=== PATIENT | male | born 1990 | race Caucasian/White ===

== ENCOUNTER 2018-12-26 21:01 | Emergency (ER) | payer SELFPAY ==
--- NOTE | 2018-12-26 21:12 | PDOC ---
History of Present Illness - General Chief Complaint: Pain Stated Complaint: SORE THROAT, EAR CLOGGED X ONE WEEK Time Seen by Provider: 12/26/18 21:04 - History of Present Illness Initial Comments: The pt is a 28M w/ no reported PMH who presents for evaluation of fevers, sore throat, and R ear discomfort/sensation of it being clogged for approximately 1 week. He has tried taking Tylenol w/ mild to moderate relief. He presents today for persistent symptoms. Denies N/V, chest pain, cough, SOB, abdominal pain, diarrhea, blood in his stool, dysuria, hematuria, or changes in sensation. 12/26/18 21:07 Past History - Past Medical History Allergies/Adverse Reactions: Allergies Allergy/AdvReac Type Severity Reaction Status Date / Time No Known Allergies Allergy Verified 12/26/18 21:02 Home Medications: Ambulatory Orders Amoxicillin - [Amoxicillin 500mg Capsule -] 500 mg PO TID #21 capsule 12/26/18 Dextroamphetamine/Amphetamine [Adderall 10 mg Tablet] 10 mg PO DAILY 12/26/18 - Immunization History Immunization Up to Date: Yes - Suicide/Smoking/Psychosocial Hx Smoking History: Unknown if ever smoked Have you smoked in the past 12 months: No Number of Cigarettes Smoked Daily: 0 Hx Alcohol Use: No Substance Use Type: None Review of Systems - Review of Systems Able to Perform ROS?: Yes Comments:: GENERAL/CONSTITUTIONAL: No chills. No weakness HEAD, EYES, EARS, NOSE AND THROAT: No change in vision. No discharge. CARDIOVASCULAR: No chest pain or shortness of breath RESPIRATORY: Denies cough, hemoptysis GASTROINTESTINAL: No nausea, vomiting, diarrhea or constipation GENITOURINARY: No dysuria, frequency, or change in urination MUSCULOSKELETAL: No joint or muscle swelling or pain. No neck or back pain SKIN: No rash NEUROLOGIC: No headache, vertigo, loss of consciousness, or change in strength/ sensation ENDOCRINE: No increased thirst. No abnormal weight change HEMATOLOGIC/LYMPHATIC: No anemia, easy bleeding, or history of blood clots ALLERGIC/IMMUNOLOGIC: No hives or skin allergy 12/26/18 21:10 Is the patient limited Amharic proficient: No *Physical Exam - Vital Signs Vital Signs Temp Pulse Resp BP Pulse Ox 97.9 F 72 16 132/84 99 12/26/18 21:04 12/26/18 21:04 12/26/18 21:04 12/26/18 21:04 12/26/18 21:04 12/26/18 21:11 - Physical Exam Comments: GENERAL: Awake, alert, and oriented to person/place/time, in no acute distress HEAD: No signs of trauma, normocephalic, atraumatic EYES: PERRLA, EOMI, sclera anicteric, conjunctiva clear ENT: R OM; L ear canal w/ copious cerumen w/ TM visualized being normal; Hearing grossly normal, nares patent, oropharynx clear without exudates. Moist mucosa LUNGS: No distress, speaks in full sentences, clear to auscultation bilaterally HEART: Regular rate and rhythm, normal S1 and S2, no murmurs appreciated, peripheral pulses normal and equal bilaterally ABDOMEN: Soft, nontender, normoactive bowel sounds. No guarding, no rebound EXTREMITIES: Normal inspection, Normal range of motion, no edema. No clubbing or cyanosis NEUROLOGICAL: Cranial nerves II through XII grossly intact. Normal speech, normal gait, no focal sensorimotor deficits SKIN: Warm, Dry 12/26/18 21:11 Medical Decision Making - Medical Decision Making The pt is a 28M w/ no reported PMH who presents for evaluation of fevers, sore throat, and R ear discomfort/sensation of it being clogged for approximately 1 week. Pt w/ R OM Amoxicillin 500mg PO once Rx for Amoxicillin for 5 days 12/26/18 21:25 Plan for D/C w/ PCP and ENT f/u Discharge instructions and return precautions given Pt in agreement and verbalized understanding Dispo: home 12/26/18 21:34 *DC/Admit/Observation/Transfer Diagnosis at time of Disposition: Right otitis media Qualifiers: Otitis media type: unspecified Qualified Code(s): H66.91 - Otitis media, unspecified, right ear - Discharge Dispostion Disposition: HOME Condition at time of disposition: Stable Decision to Admit order: No - Referrals Referrals: Jon Hernández MD [Staff Physician] - [facility] – [place] [facility] [place] [Provider Group] - Patient Instructions Printed Discharge Instructions: Middle Ear Infection Additional Instructions: You were seen in the Emergency Department for evaluation and found to have a right ear infection. You were treated with Amoxicillin and a prescription was sent to the pharmacy that you specified, take as directed. You may continue to take Tylenol for your symptoms. Review the handout provided at discharge. Follow up with your primary care provider and the referral provided for ENT. Return to the Emergency Department if you develop fevers/chills despite medication use, worsening symptoms, trouble breathing, chest pain, difficulty/ painful swallowing, or any new/concerning symptoms. - Post Discharge Activity
[2018-12-26 21:15] VITALS: BP 132/84; PULSE 72; TEMP 97.9; BMI 26.4
[2018-12-26] MEDS ORDERED: AMOXICILLIN 500 MG CAPSULE (FP) PO ONE (21:29)
[2018-12-26] MEDS ORDERED: AMOXICILLIN 250 MG CAPSULE ONE (21:32)
--- NOTE | 2018-12-26 23:53 | PDOC ---
Documentation entered by Oj Diaz SCRIBE, acting as scribe for Buffy Garza MD. Buffy Garza MD: This documentation has been prepared by the Joe valenzuela Juan Manue, SCRIBE, under my direction and personally reviewed by me in its entirety. I confirm that the documentation accurately reflects all work, treatment, procedures, and medical decision making performed by me. Attending Attestation - Resident Resident Name: AshtynLenaEnrique - ED Attending Attestation I have performed the following: I have examined & evaluated the patient, The case was reviewed & discussed with the resident, I agree w/resident's findings & plan, Exceptions are as noted - HPI HPI: 12/26/18 21:18 The patient is a 28 year old male presenti, with no significant past medical history, who presents to the ED complaining of fever, chills and sore throat for the past week. He reports that he has been taking Tylenol during this time frame with minimal relief of his symptoms. He denies any sick contacts or recent travel. He does report that he does get cerum build up in his ears bilaterally. The patient denies chest pain, shortness of breath, headache and dizziness. Denies fever, chills, nausea, vomiting, diarrhea or constipation. Allergies: None Past surgical history: None reported Social History: No alcohol, tobacco or drug use reported - Physicial Exam PE: GENERAL: Awake, alert, and fully oriented, in no acute distress HEAD: No signs of trauma EYES: PERRLA, EOMI, sclera anicteric, conjunctiva clear ENT: (+) Right OM; Left copious cerumen with TM visualized being normal; Hearing grossly normal, nares patent, oropharynx clear without exudates. Moist mucosa NECK: Normal ROM, supple, no lymphadenopathy, JVD, or masses LUNGS: Breath sounds equal, clear to auscultation bilaterally. No wheezes, and no crackles HEART: Regular rate and rhythm, normal S1 and S2, no murmurs, rubs or gallops ABDOMEN: Soft, nontender, normoactive bowel sounds. No guarding, no rebound. No masses EXTREMITIES: Normal range of motion, no edema. No clubbing or cyanosis. No cords, erythema, or tenderness NEUROLOGICAL: Cranial nerves II through XII grossly intact. Normal speech, normal gait SKIN: Warm, Dry, normal turgor, no rashes or lesions noted. - Medical Decision Making This 28-year-old man, otherwise healthy presents with mild sore throat and right ear pain for the last several days. No previous history of ear pain as an adult although he has chronic intermittent cerumen accumulation in ears bilaterally. No history of ear infection as an adult. Exam notable for erythematous, edematous right TM and erythematous pharynx Treatment for acute otitis media with amoxicillin Fluids/nonsteroidal anti-inflammatories as needed ENT follow-up for reevaluation of the right-sided otitis media and also for assessment of cerumen impaction on the left side
== END 2018-12-26 21:53 | disposition home or self-care (01) ==
LOC: FER 21:01
DX: H66.91 Otitis media, unspecified, right ear (principal)
CPT/HCPCS: 99281-25